=== PATIENT | male | born 1985 ===

== ENCOUNTER 2020-07-21 07:48 | Emergency (ER) | payer OTHER ==
[~2020-07-21] VITALS: Ht 182.9 cm; Wt 109.1 kg
[2020-07-21 08:32] LABS: BASO % 0.2 % (0.0-2.0); GRAN # 3.9 (1.4-6.5); GRAN % 73.4 % (42.2-75.2); HEMATOCRIT 42.4 % (42.0-52.0); HEMOGLOBIN 14.8 g/dl (13.5-18.0); LYMPH % 18.4 % (20.0-51.0); MEAN CELL VOLUME 89 fl (80.0-100.0); MEAN CORPUSCULAR HEMOGLOBIN 31 pg (27.0-31.0); MEAN CORPUSCULAR HGB CONC 35 g/dl (33.0-37.0); MEAN PLATELET VOLUME 10.7 fl (7.4-10.4); MONO # 0.4 (0.1-0.6); MONO % 7.2 % (1.7-9.3); PLATELET COUNT 140 K/mm3 (130-400); RED BLOOD COUNT 4.75 M/mm3 (4.20-5.60)
[2020-07-21 08:37] LABS: ALBUMIN 4.1 gm/dL (3.5-5.0); BILIRUBIN,TOTAL 0.8 mg/dL (0.0-1.0); C-REACTIVE PROTEIN 1.9 mg/dL (0.0-0.9); CALCIUM 8.5 mg/dL (8.4-10.2); CREATININE, serum 0.94 (0.66-1.25); POTASSIUM 3.9 mmol/L (3.4-5.0); TOTAL PROTEIN 7.6 gm/dL (6.4-8.2)
[2020-07-21] MEDS ORDERED: TUSS PO (10:04)
[2020-07-21 10:20] VITALS: BP 122/75; PULSE 96; TEMP 100
== END 2020-07-21 10:40 | disposition home or self-care (01) ==
LOC: COL.ER 07:48
PROVIDERS: Emergency Medicine
DX: U07.1 COVID-19 (principal); Z87.891 Personal history of nicotine dependence; Z91.013 Allergy to seafood
CPT/HCPCS: J1885; J2405; J7030

== ENCOUNTER → 2021-04-19 | Outpatient (CLI) | payer OTHER ==
[~2021-04-19] MED LIST: TUSS PO
== END ==
LOC: COL.RAD 11:43
DX: R25.1 Tremor, unspecified (principal); R20.0 Anesthesia of skin; Z48.89 Encounter for other specified surgical aftercare